=== PATIENT | male | born 1950 | race Caucasian/White ===

== ENCOUNTER 2020-01-05 07:15 | Day surgery (SDC) | payer MEDICARE, OTHER ==
[2020-01-03 12:28] LABS: HEMATOCRIT 41.6 % (42.0-54.0); HEMOGLOBIN 13.3 g/dL (13.5-17.5); MCH 30.4 pg (26.0-34.0); MEAN PLATELET VOLUME 9.7 fL (7.4-10.4); RBC 4.38 10x6/uL (4.20-6.10); RDW 14.3 % (11.5-14.5)
[2020-01-03 12:46] LABS: ANION GAP 9.5 mmol/L (8-16); CALCIUM 9.4 mg/dL (8.5-10.1); CARBON DIOXIDE 28.6 mmol/L (21.0-32.0); CREATININE - SERUM 1.5 mg/dL (0.6-1.3); POTASSIUM - SERUM 4.1 mmol/L (3.5-5.1)
[~2020-01-05] VITALS: Ht 190.5 cm; Wt 129.3 kg
--- NOTE | ~2020-01-05 | OP ---
PATIENT NAME: OLE MURO MEDICAL RECORD: [id number] :48 LOCATION:[facility] ADMISSION DATE: SURGEON: DIMITRIS HARRINGTON MD DATE OF OPERATION: 01/05/2020 PREOPERATIVE DIAGNOSIS: Left ulnar neuropathy. POSTOPERATIVE DIAGNOSIS: Left ulnar neuropathy. PROCEDURE: Left ulnar neuroplasty at the left cubital tunnel. DESCRIPTION OF TECHNIQUE: After induction of general endotracheal anesthesia, the patient's left upper extremity was exsanguinated and prepped and draped in usual sterile fashion. Tourniquet was inflated to 250 mmHg. A curvilinear incision was carried out just medial to the olecranon process. Then, using #15 blade, sharp dissection took place down to the proximal olecranon. The ulnar nerve was identified just proximal to this. Following the epineurium distal through the cubital tunnel which appeared to be just scar tissue, this was sharply divided from the nerve under microscopic illumination with a #15 blade. This ulnar nerve was followed distal until it was diving deep to the fascia. The fascia was divided over the cubital tunnel to decompress the nerve further. Following this, the elbow was flexed and extended and found to cause no tethering of the ulnar nerve. The tourniquet was released and meticulous hemostasis was maintained throughout the wound. The wound was irrigated with copious amounts of Ancef irrigant solution. The subdermal layer was closed with interrupted 4-0 Vicryl suture. The skin was closed with karen. A sterile dressing was applied to the wound. The patient was awakened in good condition and taken to recovery. All counts were reported as correct. Estimated blood loss was minimal. NTS:[id number] Voice Confirmation ID: [id number] DOCUMENT ID: [id number] DIMITRIS HARRINGTON MD CC: [id number] DICTATION DATE: 01/14/20 1311 [facility]TER: 01/15/20 0121 [facility] 01/05/20 [id number] [place] [address]
[~2020-01-05 07:15] MED LIST: BAYER CHEWABLE81 MG PO; COZAAR100 MG PO; HCTZ25 MG PO; LIPITOR20 MG PO; MECLIZINE HCL25 MG PO; ZYRTEC10 MG PO
[2020-01-05 08:38] VITALS: BP 137/83; Ht 190.5 cm; Wt 129.3 kg
[2020-01-05] MEDS ORDERED: HYDROCODON-ACE1 EA10 PO (10:33)
--- NOTE | 2020-01-05 11:01 | NUR ---
OPA IN AIRWAY ON ADMIT
--- NOTE | 2020-01-05 12:20 | NUR ---
1200 IV REMOVED AND PT ASSISTED WITH GETTING DRESSED. INSTRUCTIONS GIVEN AND IV REMOVED
== END 2020-01-05 12:15 | disposition home or self-care (01) ==
LOC: D.OPS 07:15 → D.PAN 09:15 → D.OPS 09:15
PROVIDERS: Anesthesiology; ATTEND Neurological Surgery
DX: G56.22 Lesion of ulnar nerve, left upper limb (principal); Z20.828 Contact with and (suspected) exposure to other viral communicable diseases; I10 Essential (primary) hypertension; E78.5 Hyperlipidemia, unspecified